=== PATIENT | female | born 1980 | race Caucasian/White ===

== ENCOUNTER → 2019-12-31 | Outpatient (CLI) | payer BC ==
[~2019-12-31] MED LIST: AMIT50TA PO; GABA600T7 PO
[2019-12-31 16:02] LABS: ALBUMIN 3.4 g/dL (3.4-5.0); CALCIUM 8.3 mg/dL (8.5-10.1); GFR 62.4; POTASSIUM 4.1 mmol/L (3.5-5.1); TOTAL BILIRUBIN 0.3 mg/dL (0.2-1.0); TOTAL PROTEIN 6.7 g/dL (6.4-8.2)
[2019-12-31 16:04] LABS: BASO # 0.1 x10^3/uL (0.0-0.2); BASO % 1 % (0-3); EOS # 0.3 x10^3/uL (0.0-0.7); EOS % 4 % (0-3); HEMATOCRIT 42.8 % (36.0-47.0); HEMOGLOBIN 14.6 g/dL (12.0-15.5); LYMPH # 2.8 x10^3/uL (1.0-4.8); LYMPH % 36 % (24-48); MEAN CORPUSCULAR HEMOGLOBIN 32 pg (25-35); MEAN CORPUSCULAR HGB CONC 34 g/dL (31-37); MEAN CORPUSCULAR VOLUME 94 fL (79-100); MONO # 0.6 x10^3/uL (0.0-1.1); MONO % 7 % (0-9); NEUT # 3.9 x10^3/uL (1.8-7.7); NEUT % 51 % (31-73); PLATELET COUNT 229 x10^3/uL (140-400); RED BLOOD COUNT 4.57 x10^6/uL (3.50-5.40); RED CELL DISTRIBUTION WIDTH 13.2 % (11.5-14.5); WHITE BLOOD COUNT 7.6 x10^3/uL (4.0-11.0)
[2019-12-31 16:10] LABS: BILIRUBIN,URINE NEGATIVE (NEG); CLARITY,URINE CLEAR; COLOR,URINE YELLOW; NITRITE,URINE NEGATIVE (NEG); PH,URINE 5.5 (<5.0-8.0); PROTEIN,URINE NEGATIVE (NEG-TRACE); UROBILINOGEN,URINE 0.2 mg/dL (0.2 mg/dL)
--- NOTE | 2019-12-31 16:26 | RAD ---
EXAM: Chest, 2 views. HISTORY: Hysterectomy preoperative evaluation. COMPARISON: None. FINDINGS: 2 views of the chest are obtained. There is no infiltrate, protrusion or pneumothorax. The heart is normal in size. There is a mild chest wall pectus deformity. IMPRESSION: No acute pulmonary finding. Electronically signed by: Gladis Hassan MD (12/31/2019 4:23 PM) [id number]
[2019-12-31 16:36] LABS: BACTERIA,URINE MANY /HPF (0-FEW); RBC,URINE 0 /HPF (0-2); SQUAMOUS EPITHELIAL CELL,UR MOD /LPF
== END | disposition home or self-care (01) ==
LOC: SURGPAT 09:24
PROVIDERS: ATTEND Obstetrics & Gynecology
DX: Z01.818 Encounter for other preprocedural examination (principal); Z11.59 Encounter for screening for other viral diseases; N94.6 Dysmenorrhea, unspecified; M95.4 Acquired deformity of chest and rib; F17.200 Nicotine dependence, unspecified, uncomplicated; Z88.0 Allergy status to penicillin; Z88.2 Allergy status to sulfonamides
CPT/HCPCS: 36415; 71046; 80053; 81001; 85025; 87086; U0003

== ENCOUNTER 2020-01-05 09:35 | Observation (INO) | payer BC ==
[~2020-01-05] VITALS: Ht 165.1 cm; Wt 81.4 kg
[2020-01-05] VITALS (8 sets, daily range): BP systolic 100–120; BP diastolic 65–83
[~2020-01-05 09:35] MED LIST changes: +CLINDAMYCIN 600MG PREMIX 50 ML IV PRN; +HYDROmorphone 2 MG/ML VIAL IV PRN; +IV RINGERS,LACTATED 1000ML 1,000 ML IV SCH; +LIDOCAINE 1% PF 2 ML VIAL. ID PRN; +MORPHINE SULFATE 2 MG/ML VIAL. IV PRN; +ONDANSETRON PF 4 MG/2 ML VIAL. IV PRN; +PROCHLORPERAZINE 10 MG/2 ML VIAL. IV PRN; +fentaNYL PF VIAL 100 MCG/2 ML VIAL IV PRN
[2020-01-05] MEDS ORDERED: ROCURONIUM 50 MG/5 ML VIAL. ONE (10:52)
[2020-01-05] MEDS ORDERED: fentaNYL PF VIAL 100 MCG/2 ML VIAL ONE (10:52)
[2020-01-05] MEDS ORDERED: MIDAZOLAM HCL/PF 2 MG/2 ML VIAL. ONE (10:52)
[2020-01-05] MEDS ORDERED: PROPOFOL 10 MG/ML (20ML) VIAL. IV ONE (10:54)
[2020-01-05] MEDS ORDERED: LIDOCAINE 2% PF 5 ML VIAL. ONE ×2 (10:54→14:34)
[2020-01-05] MEDS ORDERED: KETOROLAC 30 MG/ML VIAL. ONE (10:54)
[2020-01-05] MEDS ORDERED: DEXAMETHASONE SOD PHOS 4 MG/ML VIAL ONE ×2 (10:54→10:57)
[2020-01-05] MEDS ORDERED: DESFLURANE 61 TO 120 MINUTES IH ONE (10:54)
[2020-01-05] MEDS ORDERED: CLINDAMYCIN 900MG PREMIX 0 ML IV ONE (10:58)
[2020-01-05] MEDS ORDERED: CLINDAMYCIN 900MG PREMIX 50 ML IV ONE (10:58)
[2020-01-05] MEDS ORDERED: BUPIVACAINE-EPI 0.25%-1:200000 MPF 30 ML VIAL. ONE ×2 (12:18→12:19)
[2020-01-05] MEDS ORDERED: ESTROGENS, CONJ VAGINAL CREAM 30GM TUBE. ONE (12:19)
[2020-01-05] MEDS ORDERED: INDIGOTINDISULFONATE SODIUM 40 MG/5 ML AMPUL. ONE (12:19)
[2020-01-05] MEDS ORDERED: ESMOLOL 100 MG/10 ML VIAL. IVP ONE (12:49)
[2020-01-05] MEDS ORDERED: NEOSTIGMINE METHYLSULFATE 5 MG/5 ML SYRINGE. ONE ×2 (14:03→14:21)
[2020-01-05] MEDS ORDERED: GLYCOPYRROLATE 1 MG/5 ML VIAL. ONE ×2 (14:03→14:21)
[2020-01-05] MEDS ORDERED: diphenhydrAMINE 50 MG/ML VIAL IV PRN (14:45)
[2020-01-05] MEDS ORDERED: 0.9 % SODIUM CHLORIDE 10 ML DISP.SYRIN. IV PRN (14:45)
[2020-01-05] MEDS ORDERED: MORPHINE SULFATE 2 MG/ML VIAL. IV PRN (14:45)
[2020-01-05] MEDS ORDERED: ZOLPIDEM 5 MG TABLET. PO PRN (14:45)
[2020-01-05] MEDS ORDERED: diphenhydrAMINE HCL 25 MG CAPSULE PO PRN (14:45)
[2020-01-05] MEDS ORDERED: MAGNESIUM HYDROXIDE 2,400 MG/30 ML ORAL.SUSP. PO PRN (14:45)
[2020-01-05] MEDS ORDERED: CALCIUM CARBONATE 500 MG TAB.CHEW PO PRN (14:45)
[2020-01-05] MEDS ORDERED: ONDANSETRON PF 4 MG/2 ML VIAL. IV PRN (14:45)
[2020-01-05] MEDS ORDERED: SIMETHICONE 80 MG TAB.CHEW PO PRN (14:45)
[2020-01-05] MEDS ORDERED: HYDROcodone/APAP 5/325MG 1 TAB TABLET PO PRN (14:45)
[2020-01-05] MEDS ORDERED: NALOXONE 0.4 MG/ML VIAL. IV PRN (14:45)
[2020-01-05] MEDS ORDERED: LACTULOSE 20 GM/30 ML SOLUTION. PO PRN (14:45)
[2020-01-05] MEDS ORDERED: ACETAMINOPHEN/CODEINE 300/30MG TABLET. PO PRN (14:45)
[2020-01-05] MEDS ORDERED: MAG HYDROX/ALUMINUM HYD/SIMETH 30 ML ORAL.SUSP PO PRN (14:45)
--- NOTE | 2020-01-05 15:01 | PDOC ---
BRIEF OPERATIVE NOTE Date: Jan 05, 2020 Pre-Op Diagnosis menorrhagia, dysmenorrhea Post-Op Diagnosis same Procedure Performed LAVH/BSO Surgeon Dr. Adriana Romero [employer] Supervisor LYNSEY Hamlin Anesthesiologist Dr. Bowen Anesthesia Type: General Blood Loss 100cc IV Fluid 1000cc Urine Output 250cc clear via rebolledo Specimens Obtained cervix, uterus, bilateral tubes and ovaries Findings normal uterus, bilateral tubes and ovaries; normal appearing appendix Complications none Operative Note [id number] ADRIANA ROMERO MD Jan 05, 2020 15:01
[2020-01-05] MEDS: fentaNYL PF VIAL 100 MCG/2 ML VIAL IV PRN ×2 (15:06→15:43)
--- NOTE | 2020-01-05 15:52 | OP ---
DATE OF SURGERY: 01/05/2020 PREOPERATIVE DIAGNOSES: Menorrhagia, dysmenorrhea, and family history of ovarian cancer. POSTOPERATIVE DIAGNOSES: Menorrhagia, dysmenorrhea, and family history of ovarian cancer. PROCEDURE: Laparoscopic-assisted vaginal hysterectomy, bilateral salpingo-oophorectomy. SURGEON: Jelani Romero MD PERSONNEL SUPERVISOR: LYNSEY Reid ANESTHESIOLOGIST: Cordell Bowen MD ANESTHESIA: General. ESTIMATED BLOOD LOSS: 100 mL. URINE OUTPUT: 250 mL, clear via Nieto catheter. IV FLUIDS: 1 liter crystalloid. SPECIMENS: Cervix, uterus, bilateral tubes and ovaries. FINDINGS: Normal uterus, bilateral tubes and ovaries. Normal appearing appendix. Very mild adhesive disease on the left side. COMPLICATIONS: None. DESCRIPTION OF PROCEDURE: This patient was taken to the operating room where general anesthesia was placed. The patient was placed in dorsal lithotomy position [facility] The patient's abdomen and vagina were both prepped and draped in the normal sterile fashion and a Nieto catheter had been inserted under sterile technique. Upon my arrival, a timeout was performed. Once everyone agreed on the patient, the procedure, the site, the antibiotics, the allergies, we went ahead and proceeded with the surgery. A bivalve speculum was then placed in the patient's vagina. A single-tooth tenaculum was used to grasp the anterior lip of the cervix. 10-12 mL of 0.25% Marcaine with epinephrine was used to circumferentially inject around the cervix for both hemodissection and hemostatic purposes later. The Valtchev uterine manipulator was then placed through the endocervical os, locked on the single tooth tenaculum and the bivalve speculum was then removed. Top gloves were discarded and changed. Attention was then turned to the abdomen where a small infraumbilical skin incision was made with the scalpel. A curved Martha was used to dissect through the subcuticular layer to the fascia. The 5 mm Visiport was used to directly enter the abdominal cavity. Opening patient pressure was 4-5 mmHg. Carbon dioxide gas was used to then appropriately insufflate the abdominal cavity to maintain a pressure of 15 mmHg. The patient was placed in Trendelenburg position. Right and left lower quadrant ports were placed first. There was no adhesive disease on the anterior abdominal wall on either side. So after transilluminating the abdominal wall, finding an area clear of any vasculature, a small 5 mm incision was made on both sides and the blunt trocar was placed in under direct visualization without difficulty on both sides. 4-5 mL of air was used to insufflate the cuff. The scope was then moved to a lateral port to look at the umbilical port. Once it was assured to be in and free, it was also insufflated with 4-5 mL of air. At this point, the left tube and ovary were elevated. The ureter could be seen coursing low in the pelvis out of the way, staying high on the infundibulopelvic ligament, the LigaSure was used to cauterize and cut the IP ligament, going under the tube and ovary, taking the tube and ovary per patient request, then crossing the left round ligament. This was all done exactly the same on the right side, elevating the right tube and ovary, finding the ureter coursing low in the pelvis going well above that high on the infundibulopelvic ligament, cauterizing and cutting with the LigaSure, going under the tube and ovary and then crossing the round ligament on the right side as well. The uterus was then pushed cephalad and the [place] was used to elevate the bladder flap and the monopolar hook was used to create it sharply and pulling it down all while it peeled down nicely. The uterine vessels were then obtained on the right side and staying inside that, going and hugging the posterior cervix and going down and getting the vessel down to the level of the uterosacral. Then going to the opposite side to the left side, going down vertically getting the uterines and staying inside that pedicle, hugging and going through the cardinal and broad ligaments down to the level of the uterosacral all the while making sure the bladder was down anteriorly. Once this was done, the uterus was blanched, it was completely free. The vascular supply was obtained, all instruments were removed from the abdomen and attention was turned vaginally. The single tooth and Valtchev were removed. A weighted speculum was placed in the patient's vagina. Thyroid Ivan clamps were placed on the anterior and posterior lips of the cervix respectively. A scalpel was used to make a circumferential incision in the cervix. The cervix was elevated. The posterior cul-de-sac was sharply entered with curved Gupta scissors. A #0 Vicryl stitch was used to secure the posterior peritoneum to the vaginal cuff. It was tagged with a curved Martha clamp and the needle was cut and passed off. The short weighted vaginal speculum was removed and replaced with the long Lucie speculum in the posterior cul-de-sac. At this point, attention was turned to the anterior bladder peritoneum where it was sharply and bluntly dissected off using the Metzenbaums and then the open Ray-Thomas to gently push it up and out of the way. Once it was up, curved Benjie clamps x 2 were placed on the patient's left uterosacral ligament where they were doubly clamped with curved Heaneys, cut with curved Gupta scissors and suture ligated x 2 with 0 Vicryl. Second one was taken through the vaginal cuff securing uterosacral ligament to the vaginal cuff, tagged with a straight Martha clamp and the needle was cut and passed off. This was done exactly the same on the patient's right side, double clamping the uterosacrals with curved Heaneys, cutting with curved Gupta scissors, suture ligating x 2 with 0 Vicryl, taking the second one through the vaginal cuff, tagging it with a straight Martha clamp and cutting the needle off. Once this was done, the remaining pedicle on the right side was delineated with the mixture of the curved clamp and the vaginal LigaSure was used to cauterize and cut the remaining pedicle on the right. This was done exactly the same on the left. There was a tiny bit of bladder like anterior peritoneal adhesion. This was easily just peeled off and taken down. Cervix, uterus, bilateral tubes and ovaries were delivered in total and passed off for permanent pathology. The Ray-Tecs had all been removed. They were used to gently push up the anterior bladder peritoneum, so a sponge stick was used to examine all the pedicles. Once they appeared to be dry, a long Allis was used to grasp the anterior bladder peritoneum. The long Lucie speculum was removed and replaced with the short weighted vaginal speculum at this point and 2-0 Vicryl was taken through the anterior bladder peritoneum, left uterosacral ligament, posterior peritoneum and right uterosacral ligament, thus closing the peritoneum in a pursestring like fashion. Once this was done, the right and left uterosacral tags were clipped as well. The cuff was closed in an anterior to posterior running locked fashion with a full length 2-0 Vicryl and tied to that posterior cuff tag. Once this was done and hemostasis was assured, all instruments were removed from the vagina and all sponge, lap and needle counts were correct x 2 by OR personnel before going above. All gloves were discarded and changed. Attention was turned back above for a second look. She was placed back in Trendelenburg. Gas was reinsufflated. Copious irrigation revealed hemostasis. The right and left pericolic gutters were clear. The right upper quadrant looked good. The appendix looked grossly normal. So Tisseel was placed over the vaginal cuff with excellent results. The syringe was used to deflate all 3 of the trocar cuff, 4-5 mL of air out of the cuff. The right and left lower quadrant ports were removed under direct visualization. Gas was released from the umbilical port and it was removed as well. All three port sites were closed with 4-0 nylon at the skin and injected with local. JELANI ROMERO MD DR: EVAN/carla JOB#: [id number] / [id number]
[2020-01-05] MEDS: oxyCODONE/APAP 5/325 1 TAB TABLET PO PRN (23:36)
[2020-01-06 01:13] VITALS: BP 120/70
[2020-01-06 05:55] VITALS: BP 99/51
[2020-01-06 06:17] VITALS: BP 104/71
[2020-01-06] MEDS: oxyCODONE/APAP 5/325 1 TAB TABLET PO PRN ×2 (06:30→10:54)
[2020-01-06 07:13] LABS: CALCIUM 8.5 mg/dL (8.5-10.1); CREATININE 0.8 mg/dL (0.6-1.0); GFR 80.7; POTASSIUM 4.5 mmol/L (3.5-5.1)
--- NOTE | 2020-01-06 11:26 | PDOC ---
SURGICAL PROGRESS NOTE Subjective Doing well. Minimal pain. Tolerating liquids, no N/v, voiding well without catheter. Vital Signs Vital Signs Date Time Temp Pulse Resp B/P (MAP) Pulse Ox O2 Delivery O2 Flow Rate FiO2 01/06/20 10:54 18 Room Air 01/06/20 06:30 98 01/06/20 06:17 01/05/20 15:06 8.0 I&O Intake and Output 01/06/20 07:00 Intake Total 2250 ml Output Total 2400 ml Balance -150 ml Intake Oral 800 ml IV Total 1450 ml Output Urine Total 2300 ml Estimated Blood Loss 100 ml # Voids 4 PATIENT HAS A AVERY: No General: Alert, Oriented X3, Cooperative, No acute distress HEENT: Atraumatic Heart: Regular rate Abdomen: Soft, Other (all port sites c/d/i) Extremities: No clubbing, No cyanosis, No edema, No tenderness/swelling Skin: No rashes, No breakdown, No significant lesion Neuro: Normal speech Psych/Mental Status: Mental status NL, Mood NL Labs Laboratory Tests Test 01/05/20 11:03 01/06/20 06:09 Bedside Urine HCG, Qualitative Hcg negative (Negative) Hematocrit 39.7 % (36.0-47.0) Sodium Level 137 mmol/L (136-145) Potassium Level 4.5 mmol/L (3.5-5.1) Chloride Level 104 mmol/L (98-107) Carbon Dioxide Level 23 mmol/L (21-32) Anion Gap 10 (6-14) Blood Urea Nitrogen 9 mg/dL (7-20) Creatinine 0.8 mg/dL (0.6-1.0) Estimated GFR (Cockcroft-Gault) 80.7 Glucose Level 105 mg/dL (70-99) Calcium Level 8.5 mg/dL (8.5-10.1) Laboratory Tests Test 01/06/20 06:09 Hematocrit 39.7 % (36.0-47.0) Sodium Level 137 mmol/L (136-145) Potassium Level 4.5 mmol/L (3.5-5.1) Chloride Level 104 mmol/L (98-107) Carbon Dioxide Level 23 mmol/L (21-32) Anion Gap 10 (6-14) Blood Urea Nitrogen 9 mg/dL (7-20) Creatinine 0.8 mg/dL (0.6-1.0) Estimated GFR (Cockcroft-Gault) 80.7 Glucose Level 105 mg/dL (70-99) Calcium Level 8.5 mg/dL (8.5-10.1) I have reviewed the following labs, vitals, nursing Assessment/Plan POD#1 s/p LAVH/BSO Routine PO Care d/c to home later today NPV x 6 weeks Light/limited activity x 2 [address] first week or while on narcotic pain meds ok for OTC ibuprofen as needed also keep scheduled office visit already has pain pills written call or return sooner for any other questions or concerns not limited to but including pain unrelieved with pain meds, increased or unexplained vaginal bleeding or T>100.4 Justicifation of Admission Dx: Justifications for Admission: Justification of Admission Dx: Yes JELANI ROBISON MD Jan 06, 2020 11:26
--- NOTE | 2020-01-06 11:28 | PDOC3 ---
Discharge Summary Visit Information Date of Admission: Jan 05, 2020 Date of Discharge: Jan 06, 2020 Admitting Diagnosis Comment: menorrhagia, dysmenorrhea Brief Hospital Course Allergies Allergies Coded Allergies Type Severity Reaction Last Updated Verified Penicillins Allergy Severe Swelling 12/31/19 Yes honey Allergy Severe Swelling 12/31/19 Yes Sulfa (Sulfonamide Antibiotics) Allergy Intermediate Rash 12/31/19 Yes Vital Signs Vital Signs Date Time Temp Pulse Resp B/P (MAP) Pulse Ox O2 Delivery O2 Flow Rate FiO2 01/06/20 10:54 18 Room Air 01/06/20 06:30 98 01/06/20 06:17 01/05/20 15:06 8.0 Lab Results Laboratory Tests Test 01/05/20 11:03 01/06/20 06:09 Bedside Urine HCG, Qualitative Hcg negative (Negative) Hematocrit 39.7 % (36.0-47.0) Sodium Level 137 mmol/L (136-145) Potassium Level 4.5 mmol/L (3.5-5.1) Chloride Level 104 mmol/L (98-107) Carbon Dioxide Level 23 mmol/L (21-32) Anion Gap 10 (6-14) Blood Urea Nitrogen 9 mg/dL (7-20) Creatinine 0.8 mg/dL (0.6-1.0) Estimated GFR (Cockcroft-Gault) 80.7 Glucose Level 105 mg/dL (70-99) Calcium Level 8.5 mg/dL (8.5-10.1) Laboratory Tests Test 01/06/20 06:09 Hematocrit 39.7 % (36.0-47.0) Sodium Level 137 mmol/L (136-145) Potassium Level 4.5 mmol/L (3.5-5.1) Chloride Level 104 mmol/L (98-107) Carbon Dioxide Level 23 mmol/L (21-32) Anion Gap 10 (6-14) Blood Urea Nitrogen 9 mg/dL (7-20) Creatinine 0.8 mg/dL (0.6-1.0) Estimated GFR (Cockcroft-Gault) 80.7 Glucose Level 105 mg/dL (70-99) Calcium Level 8.5 mg/dL (8.5-10.1) Brief Hospital Course Ms. Warren is a 39 old female who presented with menorrhagia, dysmenorrhea. She underwent an LAVH/BSO yesterday without difficulty. She has had an unremarkable postoperative course. She has remained AFVSS, tolerating PO, voiding without catheter. Will go home today Assessment Assessment POD#1 s/p LAVH/BSO Routine PO Care d/c to home later today NPV x 6 weeks Light/limited activity x 2 weeks NO [address] first week or while on narcotic pain meds ok for OTC ibuprofen as needed also keep scheduled office visit already has pain pills written call or return sooner for any other questions or concerns not limited to but in cluding pain unrelieved with pain meds, increased or unexplained vaginal bleeding or T>100.4 Discharge Information Condition at Discharge: Stable Follow Up: Weeks Disposition/Orders: D/C to Home Scheduled Amitriptyline Hcl (Amitriptyline Hcl) 50 Mg Tablet, 1 TAB PO QHS for insomnia, #30 Ref 1 (Reported) Entered as Reported by: DAMIEN DALE on 12/31/19 1436 Gabapentin (Gabapentin) 600 Mg Tablet, 300 MG PO DAILY07 for NEUROGENIC PAIN, (Reported) Entered as Reported by: DAMIEN DALE on 12/31/19 1436 Gabapentin (Gabapentin) 600 Mg Tablet, 600 MG PO HS for NEUROGENIC PAIN, (Rep orted) Entered as Reported by: DAMIEN DALE on 12/31/19 1436 Patient Instructions Patient Instructions POD#1 s/p LAVH/BSO Routine PO Care d/c to home later today NPV x 6 weeks Light/limited activity x 2 weeks NO driving first week or while on narcotic pain meds ok for OTC ibuprofen as needed also keep scheduled office visit already has pain pills written call or return sooner for any other questions or concerns not limited to but including pain unrelieved with pain meds, increased or unexplained vaginal bleeding or T>100.4 Justicifation of Admission Dx: Justifications for Admission: Justification of Admission Dx: Yes JELANI ROBISON MD Jan 06, 2020 11:28
[2020-01-06 12:05] VITALS: BP 128/76
--- NOTE | 2020-01-06 12:05 | NUR ---
Discharge and follow up instructions reviewed and given to pt along with 2 hand written RX. Pt taken out of the hospital per W/C and helped into a car with her and her kids.
== END 2020-01-06 12:05 | disposition home or self-care (01) ==
LOC: SURG 09:35 → 3 NORTH 15:10
PROVIDERS: ADMIT Obstetrics & Gynecology; ATTEND Obstetrics & Gynecology
DX: N92.0 Excessive and frequent menstruation with regular cycle (principal); N94.6 Dysmenorrhea, unspecified; Z80.41 Family history of malignant neoplasm of ovary
CPT/HCPCS: 36415; 58552; 80048; 81025; 85014; 86850; 86900; 86901; 88307; A7015; G0378; G0379; J1100; J1885; J1956; J2250; J2704; J2710; J3010; J3490; J7030; J7120